=== PATIENT | female | born 1985 | race African-American/Black ===

== ENCOUNTER 2017-01-08 15:48 | Emergency (ER) | payer MEDICAID ==
[~2017-01-08] VITALS: Ht 142.2 cm; Wt 70.3 kg
== END 2017-01-08 16:24 | disposition home or self-care (01) ==
LOC: CFTX 15:48 → CED 15:48 → CFTX 16:18
DX: J03.90 Acute tonsillitis, unspecified (principal)
CPT/HCPCS: 99282